=== PATIENT | female | born 1995 | race Two or more races ===

== ENCOUNTER 2022-08-01 10:13 | Emergency (ER) | payer OTHER ==
[~2022-08-01] VITALS: Ht 152.4 cm; Wt 41.7 kg
[~2022-08-01 10:13] MED LIST: NAPROXEN500 MG PO
== END 2022-08-01 14:40 | disposition home or self-care (01) ==
LOC: ER 10:13
DX: O26.891 Other specified pregnancy related conditions, first trimester (principal); Z3A.01 Less than 8 weeks gestation of pregnancy; R10.2 Pelvic and perineal pain

== ENCOUNTER 2023-01-01 15:09 | Outpatient (CLI) | payer OTHER ==
[2023-01-01] MEDS ORDERED: PRENATAL + DHA1 EAC1 PO (21:25)
[2023-01-01] MEDS ORDERED: SYNTHROID75 MCG PO (21:26)
== END 2023-01-01 16:09 | disposition home or self-care (01) ==
LOC: PRENATAL 15:09
PROVIDERS: ATTEND Obstetrics & Gynecology Maternal & Fetal Medicine
DX: O35.9XX0 Maternal care for (suspected) fetal abnormality and damage, unspecified, not applicable or unspecified (principal); O35.3XX0 Maternal care for (suspected) damage to fetus from viral disease in mother, not applicable or unspecified; O99.280 Endocrine, nutritional and metabolic diseases complicating pregnancy, unspecified trimester; O36.5990 Maternal care for other known or suspected poor fetal growth, unspecified trimester, not applicable or unspecified; O44.00 Complete placenta previa NOS or without hemorrhage, unspecified trimester; Z3A.25 25 weeks gestation of pregnancy

== ENCOUNTER 2023-01-01 18:21 | Inpatient (IN) | payer OTHER ==
[~2023-01-01] VITALS: Ht 152.4 cm; Wt 51.7 kg
[2023-01-01] MEDS ORDERED: PRENATAL + DHA1 EAC1 PO (21:25)
[2023-01-01] MEDS ORDERED: SYNTHROID75 MCG PO (21:26)
[2023-01-16] MEDS ORDERED: Tylenol #3 PO (10:47)
[2023-01-16] MEDS ORDERED: NAPR500T14 PO (10:47)
== END 2023-01-16 16:57 | disposition home or self-care (01) | DRG 786 ==
LOC: OB/GYN 18:21 → LDR 18:21 → OB/GYN 01-05 08:51 → LDR 01-05 09:10 → ICU 01-05 22:54 → LDR 01-11 20:19 → O/R 01-13 15:41 → OB/GYN 01-13 19:44
PROVIDERS: ADMIT Obstetrics & Gynecology; ATTEND Obstetrics & Gynecology
PROC: 4A1HXCZ Monitoring of Products of Conception, Cardiac Rate, External Approach (ICD-10-PCS; 2023-01-01)
PROC: BY4CZZZ Ultrasonography of Second Trimester, Single Fetus (ICD-10-PCS; 2023-01-03)
PROC: B246ZZZ Ultrasonography of Right and Left Heart (ICD-10-PCS; 2023-01-05)
PROC: B54DZZZ Ultrasonography of Bilateral Lower Extremity Veins (ICD-10-PCS; 2023-01-05)
PROC: 4A033R1 Measurement of Arterial Saturation, Peripheral, Percutaneous Approach (ICD-10-PCS; 2023-01-05)
PROC: 3E0F7GC Introduction of Other Therapeutic Substance into Respiratory Tract, Via Natural or Artificial Opening (ICD-10-PCS; 2023-01-05)
PROC: BY4CZZZ Ultrasonography of Second Trimester, Single Fetus (ICD-10-PCS; 2023-01-07)
PROC: BY4CZZZ Ultrasonography of Second Trimester, Single Fetus (ICD-10-PCS; 2023-01-10)
PROC: BY4CZZZ Ultrasonography of Second Trimester, Single Fetus (ICD-10-PCS; 2023-01-13)
PROC: 10D00Z0 Extraction of Products of Conception, High, Open Approach (ICD-10-PCS; principal; 2023-01-13 17:00)
PROC: BB24ZZZ Computerized Tomography (CT Scan) of Bilateral Lungs (ICD-10-PCS; 2023-01-14)
PROC: BB24YZZ Computerized Tomography (CT Scan) of Bilateral Lungs using Other Contrast (ICD-10-PCS; 2023-01-14)
DX: O36.5920 Maternal care for other known or suspected poor fetal growth, second trimester, not applicable or unspecified (principal); J16.8 Pneumonia due to other specified infectious organisms; O26.842 Uterine size-date discrepancy, second trimester; O36.8320 Maternal care for abnormalities of the fetal heart rate or rhythm, second trimester, not applicable or unspecified; O99.512 Diseases of the respiratory system complicating pregnancy, second trimester; O36.8120 Decreased fetal movements, second trimester, not applicable or unspecified; O69.89X0 Labor and delivery complicated by other cord complications, not applicable or unspecified; O99.012 Anemia complicating pregnancy, second trimester; D64.9 Anemia, unspecified; Z3A.25 25 weeks gestation of pregnancy; Z20.822 Contact with and (suspected) exposure to COVID-19; Z37.0 Single live birth; R09.02 Hypoxemia
CPT/HCPCS: 71275